=== PATIENT | male | born 1945 | race Caucasian/White ===

== ENCOUNTER 2021-06-09 09:05 | Observation (INO) ==
[2021-06-09] MEDS ORDERED: NITROGLYCERIN 2% OINT 1 INCH/GM PACK TOP STA (09:30)
[2021-06-09] MEDS ORDERED: METOPROLOL TARTRATE 5 MG/5 ML VIAL IV STA ×2 (09:30→09:41)
[2021-06-09] MEDS ORDERED: ENOXAPARIN 100 MG/ML SYRINGE SUBCUT STA (09:30)
[2021-06-09] MEDS ORDERED: ASPIRIN 325 MG TABLET PO STA (09:30)
[2021-06-09 09:42] LABS: Basophils # 0.1 10*3/uL (0.0-0.2); Basophils % 0.7 % (0.0-0.8); Eosinophils # 0.6 10*3/uL (0.0-0.87); Eosinophils % 5.4 % (0.00-10.9); Hematocrit 42.9 VOL% (42.0-52.0); Hemoglobin 14.9 GM/DL (14.0-18.0); Immature Granulocytes % 0.6 %; Immature Granulocytes Absolute 0.06 #; Lymphocytes # 2.6 10*3/uL (1.4-4.0); Lymphocytes % 23.9 % (21.2-54.2); Mean Corpuscular HGB Conc 34.7 GM/DL (32-36); Mean Corpuscular Volume 90.1 FL (87-102); Mean Platelet Volume 10.5 FL (9.6-12.0); Monocytes % 6.6 % (1.7-12.7); Neutrophils % 62.8 % (38.7-73.9); Platelet Count 257 T/CUMM (130-400); Red Blood Count 4.76 MC/CUMM (3.8-5.5); Red Cell Distribution Width 11.9 % (9.3-17.3); White Blood Count 10.8 T/CUMM (4-12)
[2021-06-09 09:54] LABS: PT Patient Result 11.1 SECS (10.5-12.0); Partial Thromboplastin Time 27.3 SECS (23.8-32.1)
[2021-06-09 10:04] LABS: Albumin 4.3 G/DL (3.4-5.0); Bilirubin,Total 1.4 MG/DL (0.20-1.00); Calcium 9.9 MG/DL (8.5-10.1); Osmolality,Calculated 280.8 MOS/KG (273-304); Potassium 4.6 MMOL/L (3.5-5.1); Total Protein 8.1 G/DL (6.4-8.2)
[2021-06-09 10:42] LABS: Barbiturates Screen,Urine Negative (Negative); Benzodiazepines Screen,Urine Negative (Negative); Cannabinoid Screen,Urine Negative (Negative); Opiate Screen,Urine Negative (Negative); Phencyclidine Screen,Urine Negative (Negative)
[2021-06-09] MEDS ORDERED: ONDANSETRON 4 MG/2 ML VIAL IV PRN (12:22)
[2021-06-09] MEDS ORDERED: MORPHINE 2 MG/1 ML SYRINGE IV PRN (12:22)
[2021-06-09] MEDS ORDERED: MAGNESIUM SULF RIDER 2 GM/50 ML PREMIX IV PRN ×2 (12:22→13:25)
[2021-06-09] MEDS ORDERED: MAGNESIUM SULF RIDER 4 GM/100 ML PREMIX IV PRN (12:22)
[2021-06-09] MEDS ORDERED: BISACODYL 5 MG TABLET PO PRN (12:22)
[2021-06-09] MEDS ORDERED: DOCUSATE SODIUM 100 MG CAPSULE PO PRN (12:22)
[2021-06-09] MEDS ORDERED: hydrALAZINE 20 MG/1 ML VIAL IV PRN (12:22)
[2021-06-09] MEDS ORDERED: POTASSIUM CHLORIDE 20 MEQ TABLET PO PRN (12:22)
[2021-06-09] MEDS ORDERED: diphenhydrAMINE CAP 25 MG CAPSULE PO PRN (12:22)
[2021-06-09] MEDS ORDERED: ACETAMINOPHEN 325 MG TABLET PO PRN (12:22)
[2021-06-09] MEDS ORDERED: ZALEPLON 5 MG CAPSULE PO PRN (12:22)
[2021-06-09] MEDS ORDERED: ALUMINUM/MAGNES/SIMETH MAX STR 30 ML UDCUP PO PRN (12:22)
[2021-06-09] MEDS ORDERED: PROMETHAZINE 25 MG TABLET PO PRN (12:22)
[2021-06-09] MEDS ORDERED: guaiFENesin/DM ER 600-30 MG TABLET PO PRN (12:22)
[2021-06-09] MEDS ORDERED: SODIUM CHLORIDE 0.9% 1,000 ML IV SCH (12:30)
[2021-06-09] MEDS ORDERED: POTASSIUM CHLORIDE RIDER 10 MEQ/100 ML PREMIX IV PRN (13:25)
[2021-06-09] MEDS ORDERED: DIAZEPAM 5 MG TABLET PO ONE (13:25)
[2021-06-09] MEDS ORDERED: diphenhydrAMINE CAP 25 MG CAPSULE PO ONE (13:25)
[2021-06-09] MEDS ORDERED: LIDOCAINE 1% 20 ML VIAL ONE (14:32)
[2021-06-09] MEDS ORDERED: MIDAZOLAM 2 MG/2 ML VIAL ONE (14:32)
[2021-06-09] MEDS ORDERED: fentaNYL 100 MCG/2 ML VIAL ONE (14:32)
[2021-06-09] MEDS ORDERED: TIROFIBAN 5,000 MCG/100 ML PREMIX IV ONE (14:52)
[2021-06-09] MEDS ORDERED: HEPARIN 5,000 UNIT/1 ML VIAL ONE (14:56)
[2021-06-09] MEDS ORDERED: TIROFIBAN 5,000 MCG/100 ML PREMIX IV SCH (14:57)
[2021-06-09] MEDS ORDERED: TICAGRELOR 90 MG TABLET ONE (15:18)
[2021-06-09] MEDS: INSULIN LISPRO 100 UNIT/ML SUBCUT SCH ×2 (17:43→21:55)
[2021-06-09] MEDS: cilostazoL 50 MG TABLET PO SCH ×2 (17:50→21:59)
[2021-06-09] MEDS ORDERED: ASPIRIN EC 81 MG TABLET PO SCH (21:00)
[2021-06-09] MEDS ORDERED: ATORVASTATIN 20 MG TABLET PO SCH (21:00)
[2021-06-09] MEDS ORDERED: METOPROLOL SUCCINATE XL 50 MG TABLET PO SCH (21:00)
[2021-06-09] MEDS: TICAGRELOR 90 MG TABLET PO SCH (21:59)
[2021-06-09 23:02] LABS: Bilirubin,Urine Negative (Negative); Blood, Urine Negative (Negative); Glucose,Urine (UA) 50 mg/dL (Negative); Ketones,Urine Negative (Negative); Nitrite,Urine Negative (Negative); Protein,Urine Negative; RBC,Urine 1 /HPF (0-4); Squamous Epithelial Cell,Urine Occasional /HPF (0-10); Urine Appearance CLEAR (Clear); Urine Color Colorless (Yellow); Urine Urobilinogen < 2.0 EU/DL (<2.0)
[2021-06-10 01:45] LABS: Basophils # 0.1 10*3/uL (0.0-0.2); Basophils % 0.5 % (0.0-0.8); Eosinophils # 0.3 10*3/uL (0.0-0.87); Eosinophils % 2.2 % (0.00-10.9); Hemoglobin 13.8 GM/DL (14.0-18.0); Immature Granulocytes % 0.7 %; Lymphocytes # 1.7 10*3/uL (1.4-4.0); Lymphocytes % 11.5 % (21.2-54.2); Mean Corpuscular HGB Conc 35.4 GM/DL (32-36); Mean Corpuscular Volume 90.5 FL (87-102); Mean Platelet Volume 10.6 FL (9.6-12.0); Monocytes % 5.8 % (1.7-12.7); Neutrophils % 79.3 % (38.7-73.9); Platelet Count 234 T/CUMM (130-400); Red Blood Count 4.31 MC/CUMM (3.8-5.5); Red Cell Distribution Width 11.9 % (9.3-17.3); White Blood Count 14.4 T/CUMM (4-12)
[2021-06-10 02:15] LABS: Calcium 8.9 MG/DL (8.5-10.1); Osmolality,Calculated 274.2 MOS/KG (273-304); Potassium 3.8 MMOL/L (3.5-5.1); Risk Ratio 5.76; VLDL Cholesterol 88.8 MG/DL
[2021-06-10] MEDS: TICAGRELOR 90 MG TABLET PO SCH (08:20)
[2021-06-10] MEDS: cilostazoL 50 MG TABLET PO SCH (08:20)
[2021-06-10] MEDS: INSULIN LISPRO 100 UNIT/ML SUBCUT SCH (08:29)
[2021-06-10 08:31] VITALS: BP 121/82
[2021-06-10] MEDS ORDERED: MAGNESIUM SULF RIDER 4 GM/100 ML PREMIX IV ONE (08:39)
[2021-06-10] MEDS ORDERED: NITROGLYCERIN SL 0.4 MG TABLET SL PRN (08:40)
[2021-06-10] MEDS ORDERED: PANTOPRAZOLE 40 MG TABLET PO SCH (09:00)
[2021-06-10] MEDS ORDERED: DILTIAZEM CD 120 MG CAPSULE PO SCH (09:00)
[2021-06-10] MEDS ORDERED: LOSARTAN 50 MG TABLET PO SCH (09:00)
[2021-06-10] MEDS ORDERED: MAGNESIUM CHLORIDE 64 MG TABLET PO ONE (09:18)
[2021-06-10] MEDS ORDERED: ENOXAPARIN 40 MG/0.4 ML SYRINGE SUBCUT SCH (12:30)
[2021-06-10] MEDS ORDERED: ATORVASTATIN 40 MG TABLET PO SCH (21:00)
[2021-06-10] MEDS ORDERED: ROSUVASTATIN 20 MG TABLET PO SCH (21:00)
== END 2021-06-10 11:19 | disposition home or self-care (01) ==
LOC: N.EDINP 09:05 → N.ED 09:05 → N.EDINP 14:30 → N.TELES 16:23
PROVIDERS: ADMIT Internal Medicine Cardiovascular Disease; ATTEND Internal Medicine Cardiovascular Disease
PROC: CLCCHCL (ICD-10-PCS; 2021-06-09 14:15)